=== PATIENT | female | born 1985 | race Caucasian/White ===

== ENCOUNTER 2016-12-16 15:25 | Outpatient (CLI) | payer BC ==
[~2016-12-16] VITALS: Ht 157.5 cm; Wt 59.5 kg
[2016-12-16 15:31] VITALS: BP 111/63; PULSE 88; TEMP 98.2
[2016-12-16] MEDS ORDERED: PRENATAL1 TA7 PO (15:37)
== END 2016-12-16 16:00 | disposition home or self-care (01) ==
LOC: LDRO 15:25
DX: Z34.03 Encounter for supervision of normal first pregnancy, third trimester (principal); Z3A.39 39 weeks gestation of pregnancy

== ENCOUNTER 2016-12-17 03:18 | Inpatient (IN) | payer BC ==
[2016-12-17] VITALS (58 sets, daily range): BP systolic 88–133; BP diastolic 44–97; PULSE 56–107; TEMP 97.7–99.1
[~2016-12-17] VITALS: Ht 157.5 cm; Wt 59.5 kg
[~2016-12-17 03:18] MED LIST: PRENATAL1 TA7 PO
[2016-12-17 04:48] LABS: BASO # 0.1 (0.0-0.2); BASO % 0.3 % (0.0-2.0); EOS % 0.2 % (0-4.0); GRAN # 15.5 (1.4-6.5); GRAN % 81.1 % (42.2-75.2); HEMATOCRIT 37.8 % (37.0-47.0); HEMOGLOBIN 12.8 g/dl (12.5-16.0); LYMPH # 2.6 (1.2-3.4); LYMPH % 13.7 % (20.0-51.0); MEAN CELL VOLUME 82 fl (80.0-100.0); MEAN CORPUSCULAR HEMOGLOBIN 28 pg (27.0-31.0); MEAN CORPUSCULAR HGB CONC 34 g/dl (33.0-37.0); MEAN PLATELET VOLUME 9.6 fl (7.4-10.4); MONO # 0.7 (0.1-0.6); MONO % 3.7 % (1.7-9.3); PLATELET COUNT 307 K/mm3 (130-400); RED BLOOD COUNT 4.61 M/mm3 (4.10-5.30); REDCELL DISTRIBUTION WIDTH-CV 14.3 % (11.5-14.5); WHITE BLOOD COUNT 19.1 K/mm3 (4.8-10.8)
[2016-12-18 01:00] VITALS: BP 90/52; PULSE 65; TEMP 98.1
[2016-12-18 04:50] VITALS: BP 90/55; PULSE 62; TEMP 97.8
[2016-12-18 07:30] VITALS: BP 87/52; PULSE 60; TEMP 98
[2016-12-18 08:16] LABS: BASO # 0.1 (0.0-0.2); BASO % 0.3 % (0.0-2.0); EOS # 0.1 (0.0-0.7); EOS % 0.3 % (0-4.0); GRAN # 14.3 (1.4-6.5); GRAN % 77.6 % (42.2-75.2); HEMATOCRIT 31.6 % (37.0-47.0); HEMOGLOBIN 10.5 g/dl (12.5-16.0); LYMPH # 3.1 (1.2-3.4); LYMPH % 16.9 % (20.0-51.0); MEAN CELL VOLUME 85 fl (80.0-100.0); MEAN CORPUSCULAR HEMOGLOBIN 28 pg (27.0-31.0); MEAN CORPUSCULAR HGB CONC 33 g/dl (33.0-37.0); MEAN PLATELET VOLUME 9.3 fl (7.4-10.4); MONO # 0.8 (0.1-0.6); MONO % 4.4 % (1.7-9.3); PLATELET COUNT 249 K/mm3 (130-400); RED BLOOD COUNT 3.74 M/mm3 (4.10-5.30); REDCELL DISTRIBUTION WIDTH-CV 14.5 % (11.5-14.5); WHITE BLOOD COUNT 18.4 K/mm3 (4.8-10.8)
[2016-12-18 17:00] VITALS: BP 97/53; PULSE 71; TEMP 97.8
[2016-12-18 21:50] VITALS: BP 102/68; PULSE 77; TEMP 98.4
[2016-12-19 06:35] VITALS: BP 91/53; PULSE 58; TEMP 97.9
[2016-12-19 16:00] VITALS: BP 102/57; PULSE 73; TEMP 97.7
[2016-12-19 21:30] VITALS: BP 105/69; PULSE 75; TEMP 98.2
[2016-12-20 08:00] VITALS: BP 108/38; PULSE 77; TEMP 98.6
[2016-12-20] MEDS ORDERED: PERCOCET 325 MG1 TA2 PO (09:20)
[2016-12-20] MEDS ORDERED: IBU600 MG PO (09:20)
[2016-12-20 16:50] VITALS: BP 111/62; PULSE 72; TEMP 98.4
[2016-12-20 20:25] VITALS: BP 106/66; PULSE 74; TEMP 97.7
[2016-12-21 08:39] VITALS: BP 111/72; PULSE 55; TEMP 97.7
[2016-12-21] MEDS ORDERED: BREASTPUMP MC (10:14)
== END 2016-12-21 14:05 | disposition home or self-care (01) | DRG 765 ==
LOC: LDRO 03:18 → LDR 04:15 → OB 04:15
PROVIDERS: Obstetrics & Gynecology
PROC: 10D00Z1 Extraction of Products of Conception, Low, Open Approach (ICD-10-PCS; principal; 2016-12-17)
DX: O36.0130 Maternal care for anti-D [Rh] antibodies, third trimester, not applicable or unspecified (principal); D62 Acute posthemorrhagic anemia; O90.81 Anemia of the puerperium; O62.1 Secondary uterine inertia; O76 Abnormality in fetal heart rate and rhythm complicating labor and delivery; O69.81X0 Labor and delivery complicated by cord around neck, without compression, not applicable or unspecified; O69.82X0 Labor and delivery complicated by other cord entanglement, without compression, not applicable or unspecified; Z3A.39 39 weeks gestation of pregnancy; Z37.0 Single live birth
CPT/HCPCS: J0690; J1885; J2175; J2270; J2370; J2400; J2405; J2590; J2791; J2795; J3010; J7120